=== PATIENT | female | born 1985 | race Caucasian/White ===

== ENCOUNTER 2019-01-14 10:47 | Emergency (ER) | payer OTHER ==
[2019-01-14 11:07] VITALS: BP 125/84
--- NOTE | 2019-01-14 11:22 | EDM.PDOC ---
ED HPI GENERAL MEDICAL PROBLEM - General Chief Complaint: ENT Problem Stated Complaint: HIVES/SINUS Time Seen by Provider: 01/14/19 11:00 Source of Information: Reports: Patient History Limitations: Reports: No Limitations - History of Present Illness INITIAL COMMENTS - FREE TEXT/NARRATIVE: 33-year-old female presents the ED for reevaluation of sinus infection. Patient has been on amoxicillin for sinus infection for the last 4 days and is not feeling better infection she's feeling worse with increased pressure in her mid face over the maxillary sinuses pressure underneath her eyes and her teeth are aching in the maxilla. Pressure in her right ear. Aware of some postnasal drip but no significant cough. As been running a low-grade fever. Symptoms of sinus congestion started last week Friday. Second problem is chronic urticaria that is been bothering her off and on for the last 5 months. Early it's involving her upper thighs her groin abdomen and upper chest. He states it has gone away for short periods of time but keeps coming back. Is currently on Prozac, trazodone, and Sprintec oral contraceptive pill. I researched all of these and on the margin known to cause urticaria per se. She has tried numerous [id number] medications without any relief currently she is taking nothing for the hives. Onset: Gradual Onset Date: 01/05/19 (He believes sinus infection started then. Sinus infection as she has chronic allergic rhinitis.) Duration: Day(s):, Getting Worse, Other (Chronic urticaria for 5 months seems to be gradually getting worse.) Location: Reports: Face (Facial pain particularly in the maxillary sinus distribution with pressure underneath both eyes and her upper teeth in the maxilla are aching.), Generalized (There were lysed urticaria) Quality: Reports: Ache (Facial pressure aching discomfort) Severity: Moderate Improves with: Reports: Medication (She's been taking Amoxil for 4 days with no relief of the sinus congestion. Currently taking no medications for chronic urticaria) Context: Denies: Activity, Exercise, Lifting, Sick Contact, Trauma, Other Associated Symptoms: Denies: No Other Symptoms, Confusion, Chest Pain, Cough, cough w sputum, Diaphoresis, Fever/Chills, Headaches, Loss of Appetite, Malaise , Nausea/Vomiting, Rash, Seizure, Shortness of Breath, Syncope, Weakness Treatments ENGINE TURNER: Reports: Other (see below) (Sonjad) Headache Pain Score (Numeric/FACES): 8 - Related Data Allergies Allergy/AdvReac Type Severity Reaction Status Date / Time No Known Allergies Allergy Verified 01/14/19 11:06 Home Meds: Home Meds Norgestimate-Ethinyl Estradiol [Sprintec 28 Day Tablet] 1 tab PO DAILY 01/07/16 [History] Cefdinir [Omnicef] 300 mg PO BID #20 cap 01/14/19 [Rx] Desloratadine [Clarinex] 5 mg PO DAILY #30 tablet 01/14/19 [Rx] FLUoxetine HCl [Prozac] 30 mg PO DAILY 01/14/19 [History] predniSONE [Deltasone] 20 mg PO ASDIRECTED #21 tablet 01/14/19 [Rx] traZODone HCl [Trazodone HCl] 100 mg PO DAILY 01/14/19 [History] Past Medical History HEENT History: Reports: Impaired Vision Other HEENT History: weare eyeglasses/contacts Respiratory History: Reports: Bronchitis, Recurrent Genitourinary History: Reports: UTI, Recurrent Musculoskeletal History: Reports: Fracture Dermatologic History: Reports: Other (See Below) (Chronic urticaria for 5 months.) - Infectious Disease History Infectious Disease History: Reports: Chicken Pox - Past Surgical History GI Surgical History: Reports: Hernia, Abdominal Female Surgical History: Reports: Breast Implant Social & Family History - Tobacco Use Smoking Status *Q: Never Smoker - Caffeine Use Caffeine Use: Reports: Coffee - Recreational Drug Use Recreational Drug Use: No - Living Situation & Occupation Living situation: Reports: Single Occupation: Employed ED ROS ENT - Review of Systems Review Of Systems: See Below Constitutional: Reports: Fever (Low-grade fever), Malaise. Denies: Chills HEENT: Reports: Rhinitis, Sinus Problem (Lots of pressure in her face at present over the maxillary sinuses pressure underneath her eyes and her upper teeth hurt.) Respiratory: Reports: No Symptoms Cardiovascular: Reports: No Symptoms Endocrine: Reports: No Symptoms GI/Abdominal: Reports: No Symptoms : Reports: No Symptoms Musculoskeletal: Reports: No Symptoms Skin: Reports: Other (Chronic urticaria involving the upper thighs and groin abdominal wall torso upper back) Neurological: Reports: No Symptoms Psychiatric: Reports: No Symptoms Hematologic/Lymphatic: Reports: No Symptoms Immunologic: Reports: No Symptoms ED EXAM, ENT - Physical Exam Exam: See Below Exam Limited By: No Limitations General Appearance: Alert, WD/WN, No Apparent Distress, Other (Does appear to have some puffiness over the maxillary sinuses.) Eye Exam: Bilateral Eye: Normal Inspection, PERRL Ears: Other (Has a right serous otitis media. Left is normal although there is a lot of scarring on the eardrum. She has had no history of tympanostomy tubes. Therefore appears that the drum like a ruptured as a youngster.) Nose: Nasal Swelling (Severe nasal swelling with complete occlusion of the naris due to swelling of the middle middle and superior turbinates bilaterally.) Mouth/Throat: Normal Inspection, Normal Gums, Normal Lips, Normal Teeth Head: Facial Swelling, Facial Tenderness (Right face with facial swelling bilaterally over the maxillary sinus distribution), Sinus Tenderness (Maxillary sinuses) Neck: Normal Inspection, Supple, Non-Tender, Full Range of Motion. No: Lymphadenopathy (L), Lymphadenopathy (R) Respiratory/Chest: No Respiratory Distress, Lungs Clear, Normal Breath Sounds, No Accessory Muscle Use Cardiovascular: Normal Peripheral Pulses, Regular Rate, Rhythm, No Edema, No Gallop, No Murmur, No Rub Course - Vital Signs Last Recorded V/S: Last Vital Signs Temp 36.6 C 01/14/19 11:01 Pulse 93 01/14/19 11:01 Resp 16 01/14/19 11:01 BP 125/84 01/14/19 11:01 Pulse Ox 94 L 01/14/19 11:01 - Radiology Interpretation Free Text/Narrative:: 33-year-old female presents to the ED with sinusitis for the last 8-9 days. Spent on amoxicillin for 4 days and feels that her symptoms are actually worsening rather than getting better. At present she has facial pain over the maxillary sinuses with pressure underneath both eyes and her teeth are aching in the maxilla. She has no associated right serous otitis media. SPECT and of her naris shows near complete occlusion of the naris with swelling of the middle and superior turbinates bilaterally. Tenderness over the maxillary sinuses and frontal sinuses and ethmoid sinuses. Plan discontinue amoxicillin. Replace with Omnicef 300 mg twice a day for 10 days. Second problem was chronic urticaria which is been present off and on for the last 5 months. She is currently on Sprintec oral contraceptive pill and I will research this as well as the trazodone and Prozac that she's on and none of them are listed as causing urticaria. The trazodone is listed as causing a rash. At present I will not advised to stop any of her medications. She will be placed on prednisone 20 mg twice daily for 7 days then 1 tab in the morning only for another 7 days to try and stabilize the mast cells. I will also place her on Desloratadine --5 mg daily for the next 90 days in an effort to bring the urticaria under control. Failing this then I think she should follow-up with an memory care director. Departure - Departure Time of Disposition: 11:16 Disposition: Home, Self-Care 01 Condition: Fair Clinical Impression: Chronic idiopathic urticaria Sinusitis Qualifiers: Sinusitis location: maxillary Chronicity: acute Recurrence: non-recurrent Qualified Code(s): J01.00 - Acute maxillary sinusitis, unspecified - Discharge Information *PRESCRIPTION DRUG MONITORING PROGRAM REVIEWED*: Not Applicable *COPY OF PRESCRIPTION DRUG MONITORING REPORT IN PATIENT YOANA: Not Applicable Prescriptions: Cefdinir [Omnicef] 300 mg PO BID #20 cap Desloratadine [Clarinex] 5 mg PO DAILY #30 tablet predniSONE [Deltasone] 20 mg PO ASDIRECTED #21 tablet Instructions: Hives, Sinusitis, Adult Referrals: Leann Tejada PA-C [Primary Care Provider] - Forms: ED Department Discharge Additional Instructions: Evaluation in the ED today in regards to sinusitis not responding to current antibiotic treatment. Suggest discontinuing the Amoxil. Replace with Omnicef 300mg twice daily for the next ten days. In regards to the chronic hives suggest treatment with Deltasone 20mg at breakfast and suppertime for 7 days then 1 tab in the morning only for another 7 days. Also start as Desloratadine 5mg once daily for the next 90 days.
== END 2019-01-14 11:42 | disposition home or self-care (01) ==
LOC: JD.ED 10:47
DX: J01.00 Acute maxillary sinusitis, unspecified (principal); L50.8 Other urticaria; Z79.899 Other long term (current) drug therapy
CPT/HCPCS: 99283

== ENCOUNTER 2021-05-23 05:10 | Inpatient (IN) | payer BC ==
[~2021-05-23 05:10] MED LIST: Lactated Ringers 1,000 ML IV SCH; Sodium Chloride 0.9% 10 ML Syringe FLUSH PRN; ceFAZolin 2 GM in Premix Bag 1 BAG IV ONE
[2021-05-23] MEDS ORDERED: Oxytocin/Lactated Ringers 10 UNIT/1,000 ML BAG IV SCH (06:00)
[2021-05-23] MEDS ORDERED: Citric Acid/Sodium Citrate Solution 30 ML Cup PO ONE (06:00)
[2021-05-23] MEDS ORDERED: Metoclopramide 10 MG/2 ML SDV IVPUSH ONE (06:00)
[2021-05-23] MEDS ORDERED: Terbutaline 1 MG/ML SDV SUBCUT ONE (06:37)
[2021-05-23] MEDS ORDERED: Terbutaline 1 MG/ML SDV ONE (06:42)
[2021-05-23] MEDS ORDERED: Metoclopramide 10 MG/2 ML SDV ONE (07:13)
[2021-05-23] MEDS ORDERED: Citric Acid/Sodium Citrate Solution 30 ML Cup ONE (07:13)
[2021-05-23] MEDS ORDERED: Lactated Ringers 1,000 ML ONE ×3 (07:14→08:34)
--- NOTE | 2021-05-23 07:20 | PCM.OPNOTE ---
- General Post-Op/Procedure Note Date of Surgery/Procedure: 05/23/21 Operative Procedure(s): Primary low transverse Findings: When entering peritoneal cavity markedly dilated blood vessels noted on the bladder at superior aspect around where bladder flap to be created. Uterus also with a pock eugene like appearance. Patient did not a possible history of endometriosis. Normal appearance of the ovaries. Baby girl in breech presentation. Weight of 7 lbs 5 oz. APGARS of 8 & 9. Pre Op Diagnosis: 37 1/7 wk. Gestational HTN. Gestational Diabetes - diet controlled. Breech presentation - failed ECV Post-Op Diagnosis: Same Anesthesia Technique: Spinal Primary Surgeon: Neha Hale Secondary Surgeon: Asia Romero Anesthesia Provider: Mirna Wilkes Reason Metal Organ Pipe Maker Was Necessary: BMI of patient. Speed/safety of procedure Pathology: Cord blood collected. Placenta discarded Fluid Replacement, Intraop: 2,500 Output, Urine Amount: 100 EBL in mLs: 650 Complications: None Condition: Good Free Text/Narrative:: The risks, benefits, indications, potential complications, and alternatives were explained to the patient and informed consent obtained. After induction of anesthesia, the patient was placed in a supine position and then draped and prepped in the usual sterile manner. A Pfannenstiel incision was made and carried down through the subcutaneous tissue to the fascia. Fascial incision was made and extended transversely. The fascia was from the underlying rectus tissue superiorly and inferiorly. The peritoneum was identified and entered. Peritoneal incision was extended longitudinally. The utero-vesical peritoneal reflection was incised transversely taking care to a void dilated vessels noted at superior aspect of the bladder. The bladder flap was bluntly freed from the lower uterine segment. A low transverse uterine incision was made sharply with a scalpel and extended bluntly in a cephalocaudad direction. A baby girl was delivered from breech presentation with APGARS as above. After the umbilical cord was clamped and cut cord blood was obtained for evaluation. The placenta was removed intact and appeared normal. The uterus was exteriorized and cleared of clots. The uterine outline, tubes and ovaries appeared normal. The uterine incision was closed with running locked sutures of 0 Vicryl. Hemostasis was obtained with a second imbricating layer of 0 Vicryl. FloSeal also placed along the hysterotomy. The uterus was then placed back into the abdomen. The infracolic gutters were cleared of blood clots. The fascia was then reapproximated with running sutures of 0 Vicryl. The subcutaneous tissue was irrigated with sterile warm normal saline, hemostasis obtained with cautery. This layer was closed with a running 0 Vicryl. The skin was reapproximated with running Subcuticular 4-0 Monocryl sutures. Instrument, sponge, and needle counts were correct prior the abdominal closure and at the conclusion of the case.
--- NOTE | 2021-05-23 07:20 | PCM.PRNOTE ---
- Free Text/Narrative Note: 05/23/2021 - 699 PROCEDURE NOTE Procedure Date: 05/23/2021 Pre-operative Diagnosis: 1. at 37 1/7 wks 2. Breech Presentation 3. Gestational HTN 4. [id number] Post-operative Diagnosis: 1. As above s/p unsuccessful external cephalic version Anesthesia: None Description of Operation/Procedure: The risks, benefits, indications, potential complications, and alternatives were explained to the patient and informed consent obtained. Patient was placed in the supine position. Ultrasound was used to confirm complete breech presentation and appropriate JOE. Terbutaline 0.25 mg subcutaneous was given. Hands were placed on the patient's abdomen. The breech was elevated out of the pelvis while counterclockwise traction was applied to the head. Not able to successfully rotate baby. Attempt also made at clockwise traction. This too was unsuccessful. Procedure eventually abandoned due to patient discomfort. Complications: The patient tolerated the procedure well and no complications were noted. Plan: Patient to proceed with primary Neha Hale MD
[2021-05-23] MEDS ORDERED: Morphine PF 10 MG/10 ML SDV ONE (07:23)
[2021-05-23] MEDS ORDERED: ceFAZolin 1 GM Vial ONE (07:24)
--- NOTE | 2021-05-23 07:42 | PCM.PREANE ---
Preanesthetic Assessment - Procedure Proposed Procedure: c section - Anesthesia/Transfusion/Family Hx Anesthesia History: Prior Anesthesia Without Reaction Family History of Anesthesia Reaction: No Transfusion History: No Prior Transfusion(s) Intubation History: Unknown - Review of Systems General: No Symptoms (tested positive for covid, nonsymptomatic ) Pulmonary: No Symptoms Cardiovascular: No Symptoms Gastrointestinal: No Symptoms, Other (heartburn controlled with ) Neurological: No Symptoms Other: Reports: Diabetes (gestinational ) - Physical Assessment NPO Status Date: 05/22/21 NPO Status Time: 21:00 Vital Signs: Last Vital Signs Temp 37.2 C 05/23/21 04:43 Pulse 96 05/23/21 04:43 Resp 14 05/23/21 04:43 BP 119/83 05/23/21 04:43 Pulse Ox 98 05/23/21 04:43 Height: 1.7 m Weight: 103.873 kg ASA Class: 2 Mental Status: Alert & Oriented x3 Thyro-Mental Finger Breadths: 3 Mouth Opening Finger Breadths: 4 ROM/Head Extension: Full Lungs: Clear to Auscultation, Normal Respiratory Effort Cardiovascular: Regular Rate, Regular Rhythm - Lab Values: Laboratory Last Values WBC 7.28 K/mm3 (3.98-10.04) 05/23/21 05:30 RBC 3.83 M/mm3 (3.98-5.22) L 05/23/21 05:30 Hgb 12.6 gm/dl (11.2-15.7) 05/23/21 05:30 Hct 37.8 % (34.1-44.9) 05/23/21 05:30 MCV 98.7 fl (79.4-94.8) H 05/23/21 05:30 MCH 32.9 pg (25.6-32.2) H 05/23/21 05:30 MCHC 33.3 g/dl (32.2-35.5) 05/23/21 05:30 RDW Std Deviation 49.0 fL (36.4-46.3) H 05/23/21 05:30 Plt Count 338 K/mm3 (182-369) 05/23/21 05:30 MPV 8.9 fl (9.4-12.3) L 05/23/21 05:30 Creatinine 0.6 mg/dL (0.55-1.02) 05/23/21 06:00 Est Cr Clr Drug Dosing TNP 05/23/21 06:00 Estimated GFR (MDRD) > 60 mL/min (>60) 05/23/21 06:00 AST 21 U/L (15-37) 05/23/21 05:30 ALT 20 U/L (14-59) 05/23/21 06:00 SARS-CoV-2 RNA (DHARMESH) Positive (NEGATIVE) H 05/23/21 05:25 - Allergies Allergies/Adverse Reactions: Allergies Allergy/AdvReac Type Severity Reaction Status Date / Time hair dye Allergy Hives Uncoded 05/18/21 15:03 - Blood Blood Available: Yes - Anesthesia Plan Pre-Op Medication Ordered: None, Antacids - Acknowledgements Anesthesia Type Planned: Spinal Pt an Appropriate Candidate for the Planned Anesthesia: Yes Alternatives and Risks of Anesthesia Discussed w Pt/Guardian: Yes Pt/Guardian Understands and Agrees with Anesthesia Plan: Yes PreAnesthesia Questionnaire HEENT History: Reports: Impaired Vision Other HEENT History: wear eyeglasses/contacts Cardiovascular History: Reports: Hypertension Respiratory History: Reports: Bronchitis, Recurrent Gastrointestinal History: Reports: GERD Genitourinary History: Reports: UTI, Recurrent MIDDLE CARD TENDER History: Reports: Musculoskeletal History: Reports: Fracture Endocrine/Metabolic History: Reports: Diabetes, Gestational, Other (See Below) Other Endocrine/Metabolic History: diet controlled Dermatologic History: Reports: Other (See Below) Other Dermatologic History: pt has severe rash on scalp from hair dye - Infectious Disease History Infectious Disease History: Reports: Chicken Pox - Past Surgical History GI Surgical History: Reports: Hernia, Abdominal Female Surgical History: Reports: Breast Implant, Other (See Below) Other Female Surgeries/Procedures: plans to breast feed - HOME MEDS Home Medications: Home Meds Loratadine [Claritin] 10 mg PO DAILY PRN 05/18/21 [History] Pnv No.95/Ferrous Fum/Folic AC [ Tablet] 1 each PO DAILY 05/18/21 [History] - CURRENT (IN HOUSE) MEDS Current Meds: Current Medications Oxytocin/Lactated Ringer's (Pitocin In Lr 10 Units/1,000 Ml) 10 unit in 1,000 mls @ 100 mls/hr IV ASDIRECTED CHRISTAL; Protocol Lactated Ringer's (Ringers, Lactated) 1,000 mls @ 125 mls/hr IV ASDIRECTED CHRISTAL Last Admin: 05/23/21 07:18 Dose: 125 mls/hr Documented by: Sodium Chloride (Sodium Chloride 0.9% 10 Ml Syringe) 10 ml FLUSH ASDIRECTED PRN PRN Reason: Keep Vein Open Discontinued Medications Cefazolin Sodium (Cefazolin 1 Gm Vial) Confirm Administered Dose 2 gm .ROUTE .STK-MED ONE Stop: 05/23/21 07:25 Citric Acid/Sodium Citrate (Citric Acid/Sodium Citrate Solution 30 Ml Cup) 30 ml PO ONETIME ONE Stop: 05/23/21 06:01 Last Admin: 05/23/21 07:19 Dose: 30 ml Documented by: Citric Acid/Sodium Citrate (Citric Acid/Sodium Citrate Solution 30 Ml Cup) Confirm Administered Dose 30 ml .ROUTE .STK-MED ONE Stop: 05/23/21 07:14 Cefazolin Sodium/Dextrose 2 gm (/ Premix) 50 mls @ 100 mls/hr IV ONETIME ONE Stop: 05/23/21 05:12 Lactated Ringer's (Ringers, Lactated) Confirm Administered Dose 1,000 mls @ as directed .ROUTE .STK-MED ONE Stop: 05/23/21 07:15 Metoclopramide HCl (Metoclopramide 10 Mg/2 Ml Sdv) 10 mg IVPUSH ONETIME ONE Stop: 05/23/21 06:01 Last Admin: 05/23/21 07:19 Dose: 10 mg Documented by: Metoclopramide HCl (Metoclopramide 10 Mg/2 Ml Sdv) Confirm Administered Dose 10 mg .ROUTE .STK-MED ONE Stop: 05/23/21 07:14 Morphine Sulfate (Morphine Pf 10 Mg/10 Ml Sdv) Confirm Administered Dose 10 mg .ROUTE .STK-MED ONE Stop: 05/23/21 07:24 Terbutaline Sulfate (Terbutaline 1 Mg/Ml Sdv) 0.25 mg SUBCUT ONETIME ONE Stop: 05/23/21 06:38 Last Admin: 05/23/21 06:54 Dose: 0.25 mg Documented by: Terbutaline Sulfate (Terbutaline 1 Mg/Ml Sdv) Confirm Administered Dose 1 mg .ROUTE .STK-MED ONE Stop: 05/23/21 06:43
[2021-05-23] MEDS ORDERED: Oxytocin 10 Units/1 ML SDV ONE (07:54)
[2021-05-23] MEDS ORDERED: Ketorolac 30 MG/ML SDV ONE (08:19)
[2021-05-23] MEDS ORDERED: Ondansetron 4 MG/2 ML SDV ONE (08:30)
[2021-05-23] MEDS ORDERED: Ondansetron 4 MG/2 ML SDV IVPUSH PRN (09:19)
[2021-05-23] MEDS ORDERED: diphenhydrAMINE 50 MG/ML SDV IVPUSH PRN ×2 (09:19→09:26)
[2021-05-23] MEDS ORDERED: fentaNYL 100 MCG/2 ML SDV IVPUSH PRN (09:19)
--- NOTE | 2021-05-23 09:19 | PCM.POSTAN ---
POST ANESTHESIA ASSESSMENT - MENTAL STATUS Mental Status: Alert - VITAL SIGNS Vital Signs: Last Vital Signs 0854 102/54 100 83 14 97.2 Temp 37.2 C 05/23/21 04:43 Pulse 96 05/23/21 04:43 Resp 14 05/23/21 04:43 BP 119/83 05/23/21 04:43 Pulse Ox 98 05/23/21 04:43 - RESPIRATORY Respiratory Status: Respiratory Rate WNL, Airway Patent, O2 Saturation Stable, Supplemental Oxygen - CARDIOVASCULAR CV Status: Pulse Rate WNL, Blood Pressure Stable - GASTROINTESTINAL GI Status: No Symptoms - PAIN Pain Score: 0 - POST OP HYDRATION Hydration Status: Adequate & Stable
[2021-05-23] MEDS ORDERED: Naloxone 0.4 MG/ML SDV IVPUSH PRN (09:26)
[2021-05-23] MEDS ORDERED: Dextrose 5%-Lactated Ringers 1,000 ML IV SCH (09:26)
[2021-05-23] MEDS ORDERED: ePHEDrine 50 MG/ML SDV IVPUSH PRN (09:26)
[2021-05-23] MEDS: Acetaminophen/oxyCODONE 325-5 MG Tab PO PRN (11:17)
[2021-05-23] MEDS: Ketorolac 30 MG/ML SDV IVPUSH SCH ×2 (15:08→21:24)
[2021-05-24] MEDS: Ketorolac 30 MG/ML SDV IVPUSH SCH (02:30)
[2021-05-24] MEDS: Docusate Sodium 100 MG Cap PO PRN ×2 (02:35→22:55)
[2021-05-24] MEDS: Acetaminophen/oxyCODONE 325-5 MG Tab PO PRN ×4 (02:36→22:56)
--- NOTE | 2021-05-24 07:32 | PCM.PNPP ---
- General Info Date of Service: 05/24/21 Functional Status: Reports: Pain Controlled, Tolerating Diet, Ambulating - Review of Systems General: Reports: No Symptoms Pulmonary: Reports: No Symptoms Cardiovascular: Reports: No Symptoms Gastrointestinal: Reports: Abdominal Pain Genitourinary: Reports: No Symptoms Musculoskeletal: Reports: No Symptoms Neurological: Reports: No Symptoms - Patient Data Vital Signs - Most Recent: Last Vital Signs Temp 36.7 C 05/24/21 01:47 Pulse 73 05/24/21 01:47 Resp 12 05/24/21 07:00 BP 98/64 05/24/21 01:47 Pulse Ox 97 05/24/21 07:00 Weight - Most Recent: 103.873 kg I&O - Last 24 Hours: Intake & Output 05/23/21 05/24/21 05/24/21 22:59 06:59 14:59 Intake Total 2120 950 2500 Output Total 2550 2250 100 Balance -430 -1300 2400 Lab Results - Last 24 Hours: Laboratory Results - last 24 hr 05/23/21 05/23/21 Range/Units 05:30 05:30 RPR Non-reactive (NONREACTIVE) Blood Type A POSITIVE Gel Antibody Screen Negative Med Orders - Current: Current Medications Diphenhydramine HCl (Diphenhydramine 50 Mg/Ml Sdv) 25 mg IVPUSH Q6H PRN PRN Reason: Pruritis Diphenhydramine HCl (Diphenhydramine 50 Mg/Ml Sdv) 25 mg IVPUSH Q6H PRN PRN Reason: Itching or Nausea Docusate Sodium (Docusate Sodium 100 Mg Cap) 100 mg PO Q12H PRN PRN Reason: Constipation Last Admin: 05/24/21 02:35 Dose: 100 mg Documented by: Ephedrine Sulfate (Ephedrine 50 Mg/Ml Sdv) 5 mg IVPUSH SEECOMMENT PRN PRN Reason: Other Fentanyl (Fentanyl 100 Mcg/2 Ml Sdv) 50 mcg IVPUSH Q5M PRN PRN Reason: Pain Ibuprofen (Ibuprofen 600 Mg Tab) 600 mg PO Q6H PRN PRN Reason: mild pain or fever Naloxone HCl (Naloxone 0.4 Mg/Ml Sdv) 0.1 mg IVPUSH SEECOMMENT PRN PRN Reason: Respiratory Depression Ondansetron HCl (Ondansetron 4 Mg/2 Ml Sdv) 4 mg IVPUSH ONETIME PRN PRN Reason: Nausea/Vomiting Oxycodone/Acetaminophen (Acetaminophen/Oxycodone 325-5 Mg Tab) 1 tab PO Q4H PRN PRN Reason: Pain (moderate 4-6) Oxycodone/Acetaminophen (Acetaminophen/Oxycodone 325-5 Mg Tab) 2 tab PO Q4H PRN PRN Reason: Pain (severe 7-10) Last Admin: 05/24/21 02:36 Dose: 2 tab Documented by: Discontinued Medications Cefazolin Sodium (Cefazolin 1 Gm Vial) Confirm Administered Dose 2 gm .ROUTE .STK-MED ONE Stop: 05/23/21 07:25 Citric Acid/Sodium Citrate (Citric Acid/Sodium Citrate Solution 30 Ml Cup) 30 ml PO ONETIME ONE Stop: 05/23/21 06:01 Last Admin: 05/23/21 07:19 Dose: 30 ml Documented by: Citric Acid/Sodium Citrate (Citric Acid/Sodium Citrate Solution 30 Ml Cup) Confirm Administered Dose 30 ml .ROUTE .STK-MED ONE Stop: 05/23/21 07:14 Last Admin: 05/23/21 08:35 Dose: Not Given Documented by: Cefazolin Sodium/Dextrose 2 gm (/ Premix) 50 mls @ 100 mls/hr IV ONETIME ONE Stop: 05/23/21 05:12 Last Admin: 05/23/21 10:18 Dose: Not Given Documented by: Oxytocin/Lactated Ringer's (Pitocin In Lr 10 Units/1,000 Ml) 10 unit in 1,000 mls @ 100 mls/hr IV ASDIRECTED [facility]; Protocol Lactated Ringer's (Ringers, Lactated) 1,000 mls @ 125 mls/hr IV ASDIRECTED [facility] Last Admin: 05/23/21 07:18 Dose: 125 mls/hr Documented by: Lactated Ringer's (Ringers, Lactated) Confirm Administered Dose 1,000 mls @ as directed .ROUTE .STK-MED ONE Stop: 05/23/21 07:15 Last Admin: 05/23/21 08:34 Dose: Not Given Documented by: Lactated Ringer's (Ringers, Lactated) Confirm Administered Dose 1,000 mls @ as directed .ROUTE .STK-MED ONE Stop: 05/23/21 08:31 Lactated Ringer's (Ringers, Lactated) Confirm Administered Dose 1,000 mls @ as directed .ROUTE .STK-MED ONE Stop: 05/23/21 08:35 Dextrose/Lactated Ringer's (Dextrose 5%-Lactated Ringers) 1,000 mls @ 125 mls/hr IV ASDIRECTED [facility] Stop: 05/23/21 17:25 Last Admin: 05/23/21 10:39 Dose: 125 mls/hr Documented by: Ketorolac Tromethamine (Ketorolac 30 Mg/Ml Sdv) Confirm Administered Dose 30 mg .ROUTE .STK-MED ONE Stop: 05/23/21 08:20 Ketorolac Tromethamine (Ketorolac 30 Mg/Ml Sdv) 30 mg IVPUSH Q6H [facility] Stop: 05/24/21 03:01 Last Admin: 05/24/21 02:30 Dose: 30 mg Documented by: Metoclopramide HCl (Metoclopramide 10 Mg/2 Ml Sdv) 10 mg IVPUSH ONETIME ONE Stop: 05/23/21 06:01 Last Admin: 05/23/21 07:19 Dose: 10 mg Documented by: Metoclopramide HCl (Metoclopramide 10 Mg/2 Ml Sdv) Confirm Administered Dose 10 mg .ROUTE .STK-MED ONE Stop: 05/23/21 07:14 Last Admin: 05/23/21 08:34 Dose: Not Given Documented by: Miscellaneous Medication (Phenylephrine Hcl In 0.9% Nacl 1 Mg/10 Ml Syringe) Confirm Administered Dose 1 mg .ROUTE .STK-MED ONE Stop: 05/23/21 08:10 Morphine Sulfate (Morphine Pf 10 Mg/10 Ml Sdv) Confirm Administered Dose 10 mg .ROUTE .STK-MED ONE Stop: 05/23/21 07:24 Ondansetron HCl (Ondansetron 4 Mg/2 Ml Sdv) Confirm Administered Dose 4 mg .ROUTE .STK-MED ONE Stop: 05/23/21 08:31 Oxytocin (Oxytocin 10 Units/1 Ml Sdv) Confirm Administered Dose 10 unit .ROUTE .STK-MED ONE Stop: 05/23/21 07:55 Sodium Chloride (Sodium Chloride 0.9% 10 Ml Syringe) 10 ml FLUSH ASDIRECTED PRN PRN Reason: Keep Vein Open Terbutaline Sulfate (Terbutaline 1 Mg/Ml Sdv) 0.25 mg SUBCUT ONETIME ONE Stop: 05/23/21 06:38 Last Admin: 05/23/21 06:54 Dose: 0.25 mg Documented by: Terbutaline Sulfate (Terbutaline 1 Mg/Ml Sdv) Confirm Administered Dose 1 mg .ROUTE .STK-MED ONE Stop: 05/23/21 06:43 Last Admin: 05/23/21 08:33 Dose: Not Given Documented by: - Infant Interaction Infant Disposition, : [place] to Nursery Feeding: Other (see below) (pumping ) Support Person: , Mother - Recovery Exam Fundal Tone: Firm Fundal Level: 1 Fingerbreadths Below Umbilicus Fundal Placement: Midline Lochia Amount: Small Lochia Color: Rubra/Red Perineum Description: Intact, Minimal Bruising/Swelling Episiotomy/Laceration: None - Exam General: Alert, Oriented, Cooperative Lungs: Clear to Auscultation, Normal Respiratory Effort Cardiovascular: Regular Rate, Regular Rhythm GI/Abdominal Exam: Soft, Non-Tender Skin: Warm, Dry, Intact Wound/Incisions: Healing Well, Dressing Dry and Intact - Problem List & Annotations (1) 37 weeks gestation of SNOMED Code(s): 89792704 Code(s): Z3A.37 - 37 WEEKS GESTATION OF Status: Acute Current Visit: Yes (2) Gestational hypertension SNOMED Code(s): 11592805 Code(s): O13.9 - GESTATIONAL HTN W/O SIGNIFICANT PROTEINURIA, UNSP TRIMESTER Status: Acute Current Visit: Yes Qualifiers: Trimester: third trimester Qualified Code(s): O13.3 - Gestational [-induced] hypertension without significant proteinuria, third trimester (3) Gestational diabetes SNOMED Code(s): 88731730 Code(s): O24.419 - GESTATIONAL DIABETES MELLITUS IN , UNSP CONTROL Status: Acute Current Visit: Yes Qualifiers: Gestational diabetes mellitus control: diet-controlled Trimester: third trimester Qualified Code(s): O24.410 - Gestational diabetes mellitus in , diet controlled (4) Breech presentation SNOMED Code(s): 1608346 Code(s): O32.1XX0 - MATERNAL CARE FOR BREECH PRESENTATION, UNSP Status: Acute Current Visit: Yes Qualifiers: Fetus number: single or unspecified fetus Qualified Code(s): O32.1XX0 - Maternal care for breech presentation, not applicable or unspecified (5) Failed external cephalic version SNOMED Code(s): 534714286 Code(s): O32.9XX0 - MATERNAL CARE FOR MALPRESENTATION OF FETUS, UNSP, UNSP Status: Acute Current Visit: Yes (6) S/P primary low transverse SNOMED Code(s): 964918398, 52179812, 161080428, 487651334, 749119669 Code(s): Z98.891 - HISTORY OF UTERINE SCAR FROM PREVIOUS SURGERY Status: Acute Current Visit: Yes - Problem List Review Problem List Initiated/Reviewed/Updated: Yes - My Orders Last 24 Hours: My Active Orders 05/23/21 Breakfast Regular Diet [DIET] 05/23/21 09:26 Acetaminophen/oxyCODONE [Percocet 325-5 MG] 1 tab PO Q4H PRN Acetaminophen/oxyCODONE [Percocet 325-5 MG] 2 tab PO Q4H PRN Docusate Sodium [Colace] 100 mg PO Q12H PRN Naloxone [Narcan] 0.1 mg IVPUSH SEECOMMENT PRN diphenhydrAMINE [Benadryl] 25 mg IVPUSH Q6H PRN ePHEDrine [ePHEDrine sulfate] 5 mg IVPUSH SEECOMMENT PRN 05/23/21 09:26 Activity as Tolerated [RC] .Routine Antiembolic Devices [RC] PER UNIT ROUTINE Communication Order [RC] PER UNIT ROUTINE Communication Order [RC] PER UNIT ROUTINE Intake and Output [RC] Q4HR Notify Provider Intake and Out [RC] ASDIRECTED RT Incentive Spirometry [RC] Q2HWA Assess Lochia [WOMSER] Per Unit Routine Assess Uterine Involution [WOMSER] Per Unit Routine Heat Therapy [OM.PC] Per Unit Routine Peripheral IV Discontinue [OM.PC] Routine Sequential Compression Device [OM.PC] Per Unit Routine 05/24/21 05:00 Blood Glucose Check, Bedside [RC] ONETIME 05/24/21 07:22 CBC W/O DIFF,HEMOGRAM [HEME] Routine 05/24/21 08:58 Urinary Catheter Removal [RC] Per Unit Routine 05/24/21 09:00 Ibuprofen [Motrin] 600 mg PO Q6H PRN - Assessment Assessment:: POD#1 - Plan Plan:: * Routine cares * Pumping now while baby in Level 2 Nursery. Hopefully out today * BP's normal. Continue to monitor closely * Fasting blood sugar this AM * Discharge home in 2 days
--- NOTE | 2021-05-24 08:27 | PCM48HPAN ---
Post Anesthesia Note - EVALUATION WITHIN 48HRS OF ANESTHETIC Vital Signs in Normal Range: Yes Patient Participated in Evaluation: Yes Respiratory Function Stable: Yes Airway Patent: Yes Cardiovascular Function Stable: Yes Hydration Status Stable: Yes Pain Control Satisfactory: Yes Nausea and Vomiting Control Satisfactory: Yes Mental Status Recovered: Yes Vital Signs: Last Vital Signs Temp 36.7 C 05/24/21 01:47 Pulse 73 05/24/21 01:47 Resp 12 05/24/21 07:00 BP 98/64 05/24/21 01:47 Pulse Ox 97 05/24/21 07:00
[2021-05-24] MEDS: Ibuprofen 600 MG Tab PO PRN ×2 (09:23→18:48)
--- NOTE | 2021-05-25 06:30 | PCM.PNPP ---
- General Info Date of Service: 05/25/21 Functional Status: Reports: Pain Controlled, Tolerating Diet, Ambulating, Urinating - Review of Systems General: Reports: No Symptoms Pulmonary: Reports: No Symptoms Cardiovascular: Reports: No Symptoms Gastrointestinal: Reports: Abdominal Pain Genitourinary: Reports: No Symptoms Musculoskeletal: Reports: No Symptoms Psychiatric: Reports: Mood Lability, Anxiety (Feeling more "off" as baby still in Level 2 nursery . A little overwhelmed ) - Patient Data Vital Signs - Most Recent: Last Vital Signs Temp 36.6 C 05/25/21 01:58 Pulse 84 05/25/21 01:58 Resp 14 05/25/21 01:58 BP 109/72 05/25/21 01:58 Pulse Ox 97 05/25/21 01:58 Weight - Most Recent: 103.873 kg I&O - Last 24 Hours: Intake & Output 05/24/21 05/24/21 05/25/21 14:59 22:59 06:59 Intake Total 2560 480 Output Total 900 Balance 1660 480 Lab Results - Last 24 Hours: Laboratory Results - last 24 hr 05/24/21 05/24/21 Range/Units 07:13 07:46 WBC 9.66 (3.98-10.04) K/mm3 RBC 3.34 L (3.98-5.22) M/mm3 Hgb 10.9 L D (11.2-15.7) gm/dl Hct 33.5 L (34.1-44.9) % MCV 100.3 H (79.4-94.8) fl MCH 32.6 H (25.6-32.2) pg MCHC 32.5 (32.2-35.5) g/dl RDW Std Deviation 49.8 H (36.4-46.3) fL Plt Count 303 (182-369) K/mm3 MPV 8.5 L (9.4-12.3) fl POC Glucose 75 (70-99) mg/dL Med Orders - Current: Current Medications Diphenhydramine HCl (Diphenhydramine 50 Mg/Ml Sdv) 25 mg IVPUSH Q6H PRN PRN Reason: Itching or Nausea Docusate Sodium (Docusate Sodium 100 Mg Cap) 100 mg PO Q12H PRN PRN Reason: Constipation Last Admin: 05/24/21 22:55 Dose: 100 mg Documented by: Ephedrine Sulfate (Ephedrine 50 Mg/Ml Sdv) 5 mg IVPUSH SEECOMMENT PRN PRN Reason: Other Ibuprofen (Ibuprofen 600 Mg Tab) 600 mg PO Q6H PRN PRN Reason: mild pain or fever Last Admin: 05/24/21 18:48 Dose: 600 mg Documented by: Naloxone HCl (Naloxone 0.4 Mg/Ml Sdv) 0.1 mg IVPUSH SEECOMMENT PRN PRN Reason: Respiratory Depression Oxycodone/Acetaminophen (Acetaminophen/Oxycodone 325-5 Mg Tab) 1 tab PO Q4H PRN PRN Reason: Pain (moderate 4-6) Oxycodone/Acetaminophen (Acetaminophen/Oxycodone 325-5 Mg Tab) 2 tab PO Q4H PRN PRN Reason: Pain (severe 7-10) Last Admin: 05/24/21 22:56 Dose: 2 tab Documented by: Discontinued Medications Cefazolin Sodium (Cefazolin 1 Gm Vial) Confirm Administered Dose 2 gm .ROUTE .STK-MED ONE Stop: 05/23/21 07:25 Citric Acid/Sodium Citrate (Citric Acid/Sodium Citrate Solution 30 Ml Cup) 30 ml PO ONETIME ONE Stop: 05/23/21 06:01 Last Admin: 05/23/21 07:19 Dose: 30 ml Documented by: Citric Acid/Sodium Citrate (Citric Acid/Sodium Citrate Solution 30 Ml Cup) Confirm Administered Dose 30 ml .ROUTE .STK-MED ONE Stop: 05/23/21 07:14 Last Admin: 05/23/21 08:35 Dose: Not Given Documented by: Diphenhydramine HCl (Diphenhydramine 50 Mg/Ml Sdv) 25 mg IVPUSH Q6H PRN PRN Reason: Pruritis Fentanyl (Fentanyl 100 Mcg/2 Ml Sdv) 50 mcg IVPUSH Q5M PRN PRN Reason: Pain Cefazolin Sodium/Dextrose 2 gm (/ Premix) 50 mls @ 100 mls/hr IV ONETIME ONE Stop: 05/23/21 05:12 Last Admin: 05/23/21 10:18 Dose: Not Given Documented by: Oxytocin/Lactated Ringer's (Pitocin In Lr 10 Units/1,000 Ml) 10 unit in 1,000 mls @ 100 mls/hr IV ASDIRECTED [facility]; Protocol Lactated Ringer's (Ringers, Lactated) 1,000 mls @ 125 mls/hr IV ASDIRECTED [facility] Last Admin: 05/23/21 07:18 Dose: 125 mls/hr Documented by: Lactated Ringer's (Ringers, Lactated) Confirm Administered Dose 1,000 mls @ as directed .ROUTE .STK-MED ONE Stop: 05/23/21 07:15 Last Admin: 05/23/21 08:34 Dose: Not Given Documented by: Lactated Ringer's (Ringers, Lactated) Confirm Administered Dose 1,000 mls @ as directed .ROUTE .STK-MED ONE Stop: 05/23/21 08:31 Lactated Ringer's (Ringers, Lactated) Confirm Administered Dose 1,000 mls @ as directed .ROUTE .STK-MED ONE Stop: 05/23/21 08:35 Dextrose/Lactated Ringer's (Dextrose 5%-Lactated Ringers) 1,000 mls @ 125 mls/hr IV ASDIRECTED [facility] Stop: 05/23/21 17:25 Last Admin: 05/23/21 10:39 Dose: 125 mls/hr Documented by: Ketorolac Tromethamine (Ketorolac 30 Mg/Ml Sdv) Confirm Administered Dose 30 mg .ROUTE .STK-MED ONE Stop: 05/23/21 08:20 Ketorolac Tromethamine (Ketorolac 30 Mg/Ml Sdv) 30 mg IVPUSH Q6H [facility] Stop: 05/24/21 03:01 Last Admin: 05/24/21 02:30 Dose: 30 mg Documented by: Metoclopramide HCl (Metoclopramide 10 Mg/2 Ml Sdv) 10 mg IVPUSH ONETIME ONE Stop: 05/23/21 06:01 Last Admin: 05/23/21 07:19 Dose: 10 mg Documented by: Metoclopramide HCl (Metoclopramide 10 Mg/2 Ml Sdv) Confirm Administered Dose 10 mg .ROUTE .STK-MED ONE Stop: 05/23/21 07:14 Last Admin: 05/23/21 08:34 Dose: Not Given Documented by: Miscellaneous Medication (Phenylephrine Hcl In 0.9% Nacl 1 Mg/10 Ml Syringe) Confirm Administered Dose 1 mg .ROUTE .STK-MED ONE Stop: 05/23/21 08:10 Morphine Sulfate (Morphine Pf 10 Mg/10 Ml Sdv) Confirm Administered Dose 10 mg .ROUTE .STK-MED ONE Stop: 05/23/21 07:24 Ondansetron HCl (Ondansetron 4 Mg/2 Ml Sdv) Confirm Administered Dose 4 mg .ROUTE .STK-MED ONE Stop: 05/23/21 08:31 Ondansetron HCl (Ondansetron 4 Mg/2 Ml Sdv) 4 mg IVPUSH ONETIME PRN PRN Reason: Nausea/Vomiting Oxytocin (Oxytocin 10 Units/1 Ml Sdv) Confirm Administered Dose 10 unit .ROUTE .STK-MED ONE Stop: 05/23/21 07:55 Sodium Chloride (Sodium Chloride 0.9% 10 Ml Syringe) 10 ml FLUSH ASDIRECTED PRN PRN Reason: Keep Vein Open Terbutaline Sulfate (Terbutaline 1 Mg/Ml Sdv) 0.25 mg SUBCUT ONETIME ONE Stop: 05/23/21 06:38 Last Admin: 05/23/21 06:54 Dose: 0.25 mg Documented by: Terbutaline Sulfate (Terbutaline 1 Mg/Ml Sdv) Confirm Administered Dose 1 mg .ROUTE .STK-MED ONE Stop: 05/23/21 06:43 Last Admin: 05/23/21 08:33 Dose: Not Given Documented by: - Infant Interaction Disposition, : [place] to Nursery Infant Feeding: Other (see below) (pumping ) Support Person: , Mother - Recovery Exam Fundal Tone: Firm Fundal Level: 1 Fingerbreadths Below Umbilicus Fundal Placement: Midline Lochia Amount: Small Lochia Color: Rubra/Red Perineum Description: Intact, Minimal Bruising/Swelling Episiotomy/Laceration: None Bladder Status: Voiding Urinary Elimination: Voided - Exam General: Alert, Oriented, Cooperative GI/Abdominal Exam: Soft, Non-Tender Psy/Mental Status: Anxious, Other (tearful) - Problem List & Annotations (1) 37 weeks gestation of SNOMED Code(s): 79761851 Code(s): Z3A.37 - 37 WEEKS GESTATION OF Status: Acute Current Visit: Yes (2) Gestational hypertension SNOMED Code(s): 08857439 Code(s): O13.9 - GESTATIONAL HTN W/O SIGNIFICANT PROTEINURIA, UNSP TRIMESTER Status: Acute Current Visit: Yes Qualifiers: Trimester: third trimester Qualified Code(s): O13.3 - Gestational [-induced] hypertension without significant proteinuria, third trimester (3) Gestational diabetes SNOMED Code(s): 04404100 Code(s): O24.419 - GESTATIONAL DIABETES MELLITUS IN , UNSP CONTROL Status: Acute Current Visit: Yes Qualifiers: Gestational diabetes mellitus control: diet-controlled Trimester: third trimester Qualified Code(s): O24.410 - Gestational diabetes mellitus in , diet controlled (4) Breech presentation SNOMED Code(s): 8450625 Code(s): O32.1XX0 - MATERNAL CARE FOR BREECH PRESENTATION, UNSP Status: Acute Current Visit: Yes Qualifiers: Fetus number: single or unspecified fetus Qualified Code(s): O32.1XX0 - Maternal care for breech presentation, not applicable or unspecified (5) Failed external cephalic version SNOMED Code(s): 180708689 Code(s): O32.9XX0 - MATERNAL CARE FOR MALPRESENTATION OF FETUS, UNSP, UNSP Status: Acute Current Visit: Yes (6) S/P primary low transverse SNOMED Code(s): 083923521, 71543086, 842447134, 554451273, 522136540 Code(s): Z98.891 - HISTORY OF UTERINE SCAR FROM PREVIOUS SURGERY Status: Acute Current Visit: Yes - Problem List Review Problem List Initiated/Reviewed/Updated: Yes - My Orders Last 24 Hours: My Active Orders 05/24/21 09:00 Ibuprofen [Motrin] 600 mg PO Q6H PRN - Assessment Assessment:: POD#2 - Plan Plan:: * Routine cares * Pumping while baby in Level 2 Nursery. * BP's normal. Continue to monitor closely * Fasting blood sugar POD#1 was WNL - will need 2hr GTT at 6 weeks * Reviewed anxious feeling. Hopefully will improve when baby back to nursery and with her in room. Would like her to follow up next week though for mood check and BP check * Discharge home tomorrow
[2021-05-25] MEDS: Acetaminophen/oxyCODONE 325-5 MG Tab PO PRN ×2 (08:48→16:56)
[2021-05-25] MEDS: Ibuprofen 600 MG Tab PO PRN ×2 (15:11→20:34)
[2021-05-26] MEDS: Docusate Sodium 100 MG Cap PO PRN ×2 (05:00→18:07)
[2021-05-26] MEDS: Ibuprofen 600 MG Tab PO PRN ×3 (05:00→18:06)
[2021-05-26] MEDS: Acetaminophen/oxyCODONE 325-5 MG Tab PO PRN ×4 (05:00→18:07)
--- NOTE | 2021-05-26 10:33 | PCM.SN.2 ---
- Free Text/Narrative Note: Post Operative Progress Note POD #3 Subjective: Doing well overall. Ambulating without difficulty. Lochia minimal. Voiding without difficulty. Passing flatus and has had bowel movements. Tolerating regular diet without nausea or vomiting. Pain controlled with oral medications. Breast-feeding, pumping and supplementation with formula with minimal difficulty. Denies any headaches, vision changes or epigastric pain. Denies any significant shortness of breath or cough. Objective: Vitals: Vital Signs - 24 hr 05/25/21 05/25/21 05/26/21 14:49 20:32 05:01 Temperature 37.0 C 36.8 C 36.6 C Pulse, 91 82 82 Peripheral Respiratory 17 14 14 Rate Blood Pressure 119/73 126/90 125/88 O2 Sat by Pulse 96 97 99 Oximetry Physical Exam General: Alert and oriented, no acute distress Lungs: Clear to auscultation bilaterally Heart: Regular rate and rhythm Abdomen: Soft, minimal appropriate tenderness, non-distended, fundus midline, nontender and at the umbilicus Incision: Clean, dry and intact, no erythema, bleeding or drainage with skin glue in place Extremities: Trace edema in bilateral lower extremities to mid shins, no calf tenderness bilaterally Labs: Laboratory Results - last 24 hr /06/06 Range/Units 05:30 Hepatitis C Antibody <0.1 (0.0-0.9) s/co ratio ASSESSMENT: 36-year-old female -0-0-1 s/p primary section POD #3 for breech presentation, complicated by Covid positive patient with initial symptoms on 05/17, with breech presentation and unsuccessful external cephalic version, gestational hypertension and A1 gestational diabetes PLAN: Doing well Patient with intermittent mild range blood pressures but not elevated enough to require treatment at this time Breast-feeding with minimal difficulty. Assist as needed Incision healing well. Continue to keep clean and dry. Lochia minimal. Continue to monitor for appropriate lochia. Continue routine post-operative care Anticipate discharge home tomorrow due to infant being kept for monitoring Andrea Flowers MD 10:32 AM 05/26/2021
[2021-05-27] MEDS: Ibuprofen 600 MG Tab PO PRN ×2 (00:42→07:48)
[2021-05-27] MEDS: Acetaminophen/oxyCODONE 325-5 MG Tab PO PRN ×3 (00:43→11:32)
--- NOTE | 2021-05-27 09:59 | PCM.SN.2 ---
- Free Text/Narrative Note: Post Operative Progress Note POD #4 Subjective: Doing well overall. Ambulating without difficulty. Lochia minimal. Voiding without difficulty. Passing flatus and has had additional bowel movement. Tolerating regular diet without nausea or vomiting. Pain controlled with oral medications. Breast-feeding with minimal difficulty. Denies any headaches, vision changes or epigastric pain. Denies any significant shortness of breath or cough. Objective: Vitals: Vital Signs - 24 hr 05/26/21 05/26/21 05/27/21 15:03 21:16 05:20 Temperature 36.8 C 37.2 C 36.9 C Pulse, 86 82 86 Peripheral Respiratory 15 14 14 Rate Blood Pressure 110/67 122/85 127/91 H O2 Sat by Pulse 96 97 99 Oximetry Physical Exam General: Alert and oriented, no acute distress Lungs: Clear to auscultation bilaterally Heart: Regular rate and rhythm Abdomen: Soft, minimal appropriate tenderness, non-distended, fundus midline, nontender and at the umbilicus Incision: Clean, dry and intact, no erythema, bleeding or drainage with skin glue in place Extremities: Trace edema in bilateral lower extremities to mid shins, no calf tenderness bilaterally ASSESSMENT: 36-year-old female -0-0-1 s/p primary section POD #4 for breech presentation, complicated by Covid positive patient with initial symptoms on 7, with breech presentation and unsuccessful external cephalic version, gestational hypertension and A1 gestational diabetes PLAN: Doing well Patient continues with intermittent mild range blood pressures but not elevated enough to require treatment at this time Breast-feeding with minimal difficulty. Assist as needed Incision healing well. Continue to keep clean and dry. Lochia minimal. Continue to monitor for appropriate lochia. Continue routine post-operative care Discharge home today Andrea Flowers MD 9:56 AM 05/27/2021
--- NOTE | 2021-05-27 10:07 | PCM.DCSUM1 ---
Discharge Summary - Hospital Course Free Text/Narrative:: - General Post-Op/Procedure Note Date of Surgery/Procedure: 05/23/21 Operative Procedure(s): Primary low transverse Findings: When entering peritoneal cavity markedly dilated blood vessels noted on the bladder at superior aspect around where bladder flap to be created. Uterus also with a pock eugene like appearance. Patient did not a possible history of endo metriosis. Normal appearance of the ovaries. Baby girl in breech presentation. Weight of 7 lbs 5 oz. APGARS of 8 & 9. Pre Op Diagnosis: 37 1/7 wk. Gestational HTN. Gestational Diabetes - diet controlled. Breech presentation - failed ECV Post-Op Diagnosis: Same Anesthesia Technique: Spinal Primary Surgeon: Neha Hale Secondary Surgeon: Asia Romero Anesthesia Provider: Mirna Wilkes Reason Wildfire Prevention Specialist Was Necessary: BMI of patient. Speed/safety of procedure Pathology: Cord blood collected. Placenta discarded Fluid Replacement, Intraop: 2,500 Output, Urine Amount: 100 EBL in mLs: 650 Complications: None Condition: Good Free Text/Narrative:: The risks, benefits, indications, potential complications, and alternatives were explained to the patient and informed consent obtained. After induction of anesthesia, the patient was placed in a supine position and then draped and prepped in the usual sterile manner. A Pfannenstiel incision was made and carried down through the subcutaneous tissue to the fascia. Fascial incision was made and extended transversely. The fascia was from the underlying rectus tissue superiorly and inferiorly. The peritoneum was identified and entered. Peritoneal incision was extended longitudinally. The utero-vesical peritoneal reflection was incised transversely taking care to avoid dilated vessels noted at superior aspect of the bladder. The bladder flap was bluntly freed from the lower uterine segment. A low transverse uterine incision was made sharply with a scalpel and extended bluntly in a cephalocaudad direction. A baby girl was delivered from breech presentation with APGARS as above. After the umbilical cord was clamped and cut cord blood was obtained for evaluation. The placenta was removed intact and appeared normal. The uterus was exteriorized and cleared of clots. The uterine outline, tubes and ovaries appeared normal. The uterine incision was closed with running locked sutures of 0 Vicryl. Hemostasis was obtained with a second imbricating layer of 0 Vicryl. FloSeal also placed along the hysterotomy. The uterus was then placed back into the abdomen. The infracolic gutters were cleared of blood clots. The fascia was then reapproximated with running sutures of 0 Vicryl. The subcutaneous tissue was irrigated with sterile warm normal saline, hemostasis obtained with cautery. This layer was closed with a running 0 Vicryl. The skin was reapproximated with running Subcuticular 4-0 Monocryl sutures. Instrument, sponge, and needle counts were correct prior the abdominal closure and at the conclusion of the case. Diagnosis: Stroke: No - Discharge Data Discharge Date: 05/27/21 Discharge Disposition: Home, Self-Care 01 Condition: Good - Referral to Home Health Primary Care Physician: Neha Hale MD - Discharge Diagnosis/Problem(s) (1) 37 weeks gestation of SNOMED Code(s): 63096902 ICD Code: Z3A.37 - 37 WEEKS GESTATION OF Status: Acute Current Visit: Yes (2) Breech presentation SNOMED Code(s): 4281168 ICD Code: O32.1XX0 - MATERNAL CARE FOR BREECH PRESENTATION, UNSP Status: Acute Current Visit: Yes Qualifiers: Fetus number: single or unspecified fetus Qualified Code(s): O32.1XX0 - Maternal care for breech presentation, not applicable or unspecified (3) Failed external cephalic version SNOMED Code(s): 650624736 ICD Code: O32.9XX0 - MATERNAL CARE FOR MALPRESENTATION OF FETUS, UNSP, UNSP Status: Acute Current Visit: Yes (4) Gestational diabetes SNOMED Code(s): 75407225 ICD Code: O24.419 - GESTATIONAL DIABETES MELLITUS IN , UNSP CONTROL Status: Acute Current Visit: Yes Qualifiers: Gestational diabetes mellitus control: diet-controlled Trimester: third trimester Qualified Code(s): O24.410 - Gestational diabetes mellitus in , diet controlled (5) Gestational hypertension SNOMED Code(s): 00271617 ICD Code: O13.9 - GESTATIONAL HTN W/O SIGNIFICANT PROTEINURIA, UNSP TRIMESTER Status: Acute Current Visit: Yes Qualifiers: Trimester: third trimester Qualified Code(s): O13.3 - Gestational [-induced] hypertension without significant proteinuria, third trimester (6) S/P primary low transverse SNOMED Code(s): 396278322, 70585181, 788125878, 814644240, 875324051 ICD Code: Z98.891 - HISTORY OF UTERINE SCAR FROM PREVIOUS SURGERY Status: Acute Current Visit: Yes - Patient Summary/Data Operative Procedure(s) Performed: Primary low transverse Complications: Failed external cephalic version leading to primary section Consults: None Hospital Course: Elisabeth Benites was admitted for attempted external cephalic version in the setting of gestational hypertension with gestational diabetes. External cephalic version was attempted and unsuccessful in turning the to vertex presentation and decision was made to proceed with primary section. She was taken back to the OR and given spinal injection for anesthesia. She was given Ancef 2 g IV for antibiotic prophylaxis. She was prepped and draped in the normal fashion. On 05/23/2021 she had a primary normal delivery of a live female infant at 08:22. Apgars of 8 and 9. Weight of 3310 g (7 pounds 4.8 ounces). She was closed in a normal fashion. There were no complications with the procedure. Please see the operative report for full details. Her post operative course was complicated by diagnosis with COVID-19 infection based on nasal swab and patient was kept in isolation. Her pain was well controlled and she had minimal lochia. She was ambulating, tolerating a regular diet and voiding normally. She was passing flatus and has had a bowel movement. She was breast feeding without difficulty. She was afebrile and her hematocrit was 33.5 on POD #1. She desired to be discharged home on the morning of POD #4. Her blood type is A+. - Patient Instructions Diet: Regular Diet as Tolerated Activity: Apply Ice, As Tolerated, No Lifting Over 20 Pounds Activity, Other: Nothing in the vagina for 6 weeks Driving: Do Not Drive (While taking narcotic medications or having significant pain) Showering/Bathing: May Shower Wound/Incision Care: Keep Operative Site/Wound Site Clean and Dry Notify Provider of: Fever, Increased Pain, Swelling and Redness, Drainage, Nausea and/or Vomiting Other/Special Instructions: Please contact your physician's office if you note any bleeding or pus coming from the abdominal incision. Please contact your physician's office if you have heavy vaginal bleeding enough to soak a pad in less than an hour for several hours. Monitor for any signs of an infection in the breasts with severe pain or redness of the breast. Please contact your physician's office if you have a severe headache that does not improve with Tylenol or ibuprofen, spots in your vision or severe pain in your upper abdomen. - Discharge Plan *PRESCRIPTION DRUG MONITORING PROGRAM REVIEWED*: Yes *COPY OF PRESCRIPTION DRUG MONITORING REPORT IN PATIENT YOANA: No Prescriptions/Med Rec: Acetaminophen/oxyCODONE [Percocet 325-5 MG] 1 - 2 tab PO Q4H PRN #30 tablet PRN Reason: Pain Home Medications: Home Meds Loratadine [Claritin] 10 mg PO DAILY PRN 05/18/21 [History] Pnv No.95/Ferrous Fum/Folic AC [ Tablet] 1 each PO DAILY 05/18/21 [History] Acetaminophen/oxyCODONE [Percocet 325-5 MG] 1 - 2 tab PO Q4H PRN #30 tablet 05/26/21 [Rx] Docusate Sodium [Colace] 100 mg PO Q12H PRN cap 05/26/21 [Rx] Ibuprofen [Motrin] 600 mg PO Q6H PRN tablet 05/26/21 [Rx] Patient Handouts: Care After Delivery Referrals: Neha Hale MD [Primary Care Provider] - (Follow-up in 1 week for routine check with blood pressure check or earlier as needed) - Discharge Summary/Plan Comment DC Time >30 min.: No - Patient Data Vitals - Most Recent: Last Vital Signs Temp 36.9 C 05/27/21 05:20 Pulse 86 05/27/21 05:20 Resp 14 05/27/21 05:20 BP 127/91 H 05/27/21 05:20 Pulse Ox 99 05/27/21 05:20 Weight - Most Recent: 103.873 kg Med Orders - Current: Current Medications Diphenhydramine HCl (Diphenhydramine 50 Mg/Ml Sdv) 25 mg IVPUSH Q6H PRN PRN Reason: Itching or Nausea Docusate Sodium (Docusate Sodium 100 Mg Cap) 100 mg PO Q12H PRN PRN Reason: Constipation Last Admin: 05/26/21 18:07 Dose: 100 mg Documented by: Ephedrine Sulfate (Ephedrine 50 Mg/Ml Sdv) 5 mg IVPUSH SEECOMMENT PRN PRN Reason: Other Ibuprofen (Ibuprofen 600 Mg Tab) 600 mg PO Q6H PRN PRN Reason: mild pain or fever Last Admin: 05/27/21 07:48 Dose: 600 mg Documented by: Naloxone HCl (Naloxone 0.4 Mg/Ml Sdv) 0.1 mg IVPUSH SEECOMMENT PRN PRN Reason: Respiratory Depression Oxycodone/Acetaminophen (Acetaminophen/Oxycodone 325-5 Mg Tab) 1 tab PO Q4H PRN PRN Reason: Pain (moderate 4-6) Last Admin: 05/27/21 07:48 Dose: 1 tab Documented by: Oxycodone/Acetaminophen (Acetaminophen/Oxycodone 325-5 Mg Tab) 2 tab PO Q4H PRN PRN Reason: Pain (severe 7-10) Last Admin: 05/25/21 08:48 Dose: 2 tab Documented by: Discontinued Medications Cefazolin Sodium (Cefazolin 1 Gm Vial) Confirm Administered Dose 2 gm .ROUTE .STK-MED ONE Stop: 05/23/21 07:25 Citric Acid/Sodium Citrate (Citric Acid/Sodium Citrate Solution 30 Ml Cup) 30 ml PO ONETIME ONE Stop: 05/23/21 06:01 Last Admin: 05/23/21 07:19 Dose: 30 ml Documented by: Citric Acid/Sodium Citrate (Citric Acid/Sodium Citrate Solution 30 Ml Cup) Confirm Administered Dose 30 ml .ROUTE .STK-MED ONE Stop: 05/23/21 07:14 Last Admin: 05/23/21 08:35 Dose: Not Given Documented by: Diphenhydramine HCl (Diphenhydramine 50 Mg/Ml Sdv) 25 mg IVPUSH Q6H PRN PRN Reason: Pruritis Fentanyl (Fentanyl 100 Mcg/2 Ml Sdv) 50 mcg IVPUSH Q5M PRN PRN Reason: Pain Cefazolin Sodium/Dextrose 2 gm (/ Premix) 50 mls @ 100 mls/hr IV ONETIME ONE Stop: 05/23/21 05:12 Last Admin: 05/23/21 10:18 Dose: Not Given Documented by: Oxytocin/Lactated Ringer's (Pitocin In Lr 10 Units/1,000 Ml) 10 unit in 1,000 mls @ 100 mls/hr IV ASDIRECTED [facility]; Protocol Lactated Ringer's (Ringers, Lactated) 1,000 mls @ 125 mls/hr IV ASDIRECTED [facility] Last Admin: 05/23/21 07:18 Dose: 125 mls/hr Documented by: Lactated Ringer's (Ringers, Lactated) Confirm Administered Dose 1,000 mls @ as directed .ROUTE .STK-MED ONE Stop: 05/23/21 07:15 Last Admin: 05/23/21 08:34 Dose: Not Given Documented by: Lactated Ringer's (Ringers, Lactated) Confirm Administered Dose 1,000 mls @ as directed .ROUTE .STK-MED ONE Stop: 05/23/21 08:31 Lactated Ringer's (Ringers, Lactated) Confirm Administered Dose 1,000 mls @ as directed .ROUTE .ST-MED ONE Stop: 05/23/21 08:35 Dextrose/Lactated Ringer's (Dextrose 5%-Lactated Ringers) 1,000 mls @ 125 mls/hr IV ASDIRECTED [facility] Stop: 05/23/21 17:25 Last Admin: 05/23/21 10:39 Dose: 125 mls/hr Documented by: Ketorolac Tromethamine (Ketorolac 30 Mg/Ml Sdv) Confirm Administered Dose 30 mg .ROUTE .ST-MED ONE Stop: 05/23/21 08:20 Ketorolac Tromethamine (Ketorolac 30 Mg/Ml Sdv) 30 mg IVPUSH Q6H [facility] Stop: 05/24/21 03:01 Last Admin: 05/24/21 02:30 Dose: 30 mg Documented by: Metoclopramide HCl (Metoclopramide 10 Mg/2 Ml Sdv) 10 mg IVPUSH ONETIME ONE Stop: 05/23/21 06:01 Last Admin: 05/23/21 07:19 Dose: 10 mg Documented by: Metoclopramide HCl (Metoclopramide 10 Mg/2 Ml Sdv) Confirm Administered Dose 10 mg .ROUTE .STK-MED ONE Stop: 05/23/21 07:14 Last Admin: 05/23/21 08:34 Dose: Not Given Documented by: Miscellaneous Medication (Phenylephrine Hcl In 0.9% Nacl 1 Mg/10 Ml Syringe) Confirm Administered Dose 1 mg .ROUTE .STK-MED ONE Stop: 05/23/21 08:10 Morphine Sulfate (Morphine Pf 10 Mg/10 Ml Sdv) Confirm Administered Dose 10 mg .ROUTE .STK-MED ONE Stop: 05/23/21 07:24 Ondansetron HCl (Ondansetron 4 Mg/2 Ml Sdv) Confirm Administered Dose 4 mg .ROUTE .STK-MED ONE Stop: 05/23/21 08:31 Ondansetron HCl (Ondansetron 4 Mg/2 Ml Sdv) 4 mg IVPUSH ONETIME PRN PRN Reason: Nausea/Vomiting Oxytocin (Oxytocin 10 Units/1 Ml Sdv) Confirm Administered Dose 10 unit .ROUTE .STBooodl-MED ONE Stop: 05/23/21 07:55 Sodium Chloride (Sodium Chloride 0.9% 10 Ml Syringe) 10 ml FLUSH ASDIRECTED PRN PRN Reason: Keep Vein Open Terbutaline Sulfate (Terbutaline 1 Mg/Ml Sdv) 0.25 mg SUBCUT ONETIME ONE Stop: 05/23/21 06:38 Last Admin: 05/23/21 06:54 Dose: 0.25 mg Documented by: Terbutaline Sulfate (Terbutaline 1 Mg/Ml Sdv) Confirm Administered Dose 1 mg . ROUTE .STK-MED ONE Stop: 05/23/21 06:43 Last Admin: 05/23/21 08:33 Dose: Not Given Documented by:
[2021-05-27 12:24] VITALS: BP 119/82; PULSE 88
== END 2021-05-27 11:45 | disposition home or self-care (01) | DRG 540 ==
LOC: JD.OB 05:10 → OBSVTOIN 08:21 → JD.OB 08:22
PROVIDERS: ADMIT Obstetrics & Gynecology; ATTEND Obstetrics & Gynecology
PROC: 10D00Z1 Extraction of Products of Conception, Low, Open Approach (ICD-10-PCS; principal; 2021-05-23)
DX: O32.1XX0 Maternal care for breech presentation, not applicable or unspecified (principal); O24.420 Gestational diabetes mellitus in childbirth, diet controlled; O13.4 Gestational [pregnancy-induced] hypertension without significant proteinuria, complicating childbirth; O98.52 Other viral diseases complicating childbirth; U07.1 COVID-19; O32.9XX0 Maternal care for malpresentation of fetus, unspecified, not applicable or unspecified; O99.62 Diseases of the digestive system complicating childbirth; K21.9 Gastro-esophageal reflux disease without esophagitis; Z3A.37 37 weeks gestation of pregnancy; Z37.0 Single live birth
CPT/HCPCS: 01961; 36415; 59025; 59412; 82565; 82947; 84450; 84460; 85027; 86592; 86803; 86850; 86900; 86901; 94762; A9270-GY; J0690; J1885; J2270; J2370; J2405; J2590; J2765; J3105; J7120; J7121; U0002

== ENCOUNTER 2022-12-24 08:05 | Emergency (ER) | payer BC | END 2022-12-24 09:45 | disposition home or self-care (01) | LOC: JD.ED 08:05 | DX: S93.402A Sprain of unspecified ligament of left ankle, initial encounter (principal); I10 Essential (primary) hypertension; Z91.041 Radiographic dye allergy status; X50.1XXA Overexertion from prolonged static or awkward postures, initial encounter | CPT/HCPCS: 73610-26-LT; 73610-LT; 73630-26-LT; 73630-LT; 99283 ==

== ENCOUNTER 2023-11-14 19:02 | Emergency (ER) | payer BC ==
[2023-11-14] MEDS ORDERED: Sodium Chloride 0.9% 10 ML Syringe FLUSH PRN (19:47)
[2023-11-14] MEDS ORDERED: Ketorolac 30 MG/ML SDV IVPUSH ONE (19:49)
[2023-11-14] MEDS ORDERED: Prochlorperazine 10 MG/2 ML SDV IVPUSH ONE (19:49)
[2023-11-14] MEDS ORDERED: Sodium Chloride 0.9% 1,000 ML IV SCH (20:00)
[2023-11-14] MEDS ORDERED: Iopamidol 612 MG/ML 100 ML Bottle IVPUSH ONE (20:01)
[2023-11-14] MEDS ORDERED: Sodium Chloride 0.9% 10 ML Syringe FLUSH ONE (20:01)
[2023-11-14] MEDS ORDERED: Ondansetron 4 MG Tab.DIS PO STA (20:32)
[2023-11-14 20:36] LABS: BASOPHILS PERCENT AUTO 0.2 % (0.0-1.0); EOSINOPHILS ABSOLUTE AUTO 0.1 K/mm3 (0.0-0.4); EOSINOPHILS PERCENT AUTO 0.6 % (0.0-6.0); HEMATOCRIT 40.2 % (37.0-47.0); HEMOGLOBIN 13.7 gm/dl (12.0-16.0); IMMATURE GRAN ABSOLUTE AUTO 0.03 K/mm3 (0.00-0.05); IMMATURE GRAN PERCENT AUTO 0.3 % (0.0-0.4); LYMPHOCYTES ABSOLUTE AUTO 0.7 K/mm3 (1.0-4.8); LYMPHOCYTES PERCENT AUTO 6.8 % (24.0-44.0); MEAN CORPUSCULAR HEMOGLOBIN 33.4 pg (28.0-32.0); MEAN CORPUSCULAR HGB CONC 34.1 g/dl (32.0-36.0); MEAN PLATELET VOLUME 8.8 fl (9.4-12.3); MONOCYTES ABSOLUTE AUTO 0.4 K/mm3 (0.0-0.8); MONOCYTES PERCENT AUTO 3.6 % (0.0-8.0); NEUTROPHILS ABSOLUTE AUTO 8.8 K/mm3 (1.8-7.7); NEUTROPHILS PERCENT AUTO 88.5 % (41.0-71.0); PLATELET COUNT,PLT 326 K/mm3 (150-400)
[2023-11-14 20:52] LABS: ALBUMIN 3.7 g/dl (3.4-5.0); ANION GAP 10.7 (5-15); BILIRUBIN TOTAL 0.5 mg/dL (0.2-1.0); BUN/CREATININE RATIO 15.6 (14-18); CALCIUM 9.2 mg/dL (8.5-10.1); CREATININE 0.9 mg/dL (0.55-1.02); EST CRCL DRUG DOSING (CG) 84.03 mL/min; POTASSIUM,K 3.7 mEq/L (3.5-5.1); PROTEIN TOTAL,TP 7.5 g/dl (6.4-8.2)
[2023-11-14 20:53] LABS: APPEARANCE,URINE CLEAR (Clear); BILIRUBIN,URINE 1+ (Negative); COLOR,URINE YELLOW (Yellow); GLUCOSE,URINE NEGATIVE (Negative); KETONES,URINE TRACE (Negative); LEUKOCYTE ESTERASE,URINE NEGATIVE (Negative); NITRITE,URINE NEGATIVE (Negative); OCCULT BLOOD,URINE 2+ (Negative); PROTEIN,URINE TRACE (Negative); UROBILINOGEN,URINE 0.2 (0.2-1.0)
[2023-11-14 21:09] LABS: BACTERIA,URINE MODERATE /hpf (FEW); MUCUS,URINE MANY /hpf (FEW); RBC,URINE 0-5 /hpf (0-5); WBC,URINE 0-5 /hpf (0-5)
[2023-11-14] MEDS ORDERED: Loperamide 2 MG Cap PO ONE (23:10)
[2023-11-14 23:33] VITALS: BP 113/76; PULSE 69
== END 2023-11-14 23:31 | disposition home or self-care (01) ==
LOC: JD.ED 19:02
DX: A08.4 Viral intestinal infection, unspecified (principal); I10 Essential (primary) hypertension; Z91.041 Radiographic dye allergy status
CPT/HCPCS: 36415; 74177; 80053; 81001; 81025; 85025; 96361; 96374; 96375; 99284; A9270; J0780; J1885; J3490; J7030; Q9967